=== PATIENT | male | born 1950 | race Caucasian/White ===

== ENCOUNTER 2018-11-05 15:33 | Inpatient (IN) | payer MEDICARE, OTHER ==
[~2018-11-05] VITALS: Ht 175.3 cm; Wt 87.5 kg
[2018-12-11] VITALS (11 sets, daily range): BP systolic 125–146; BP diastolic 77–90; PULSE 63–102; TEMP 97.3–97.6
[2018-12-11] MEDS ORDERED: COUMADIN4 MG PO (09:28)
[2018-12-11] MEDS ORDERED: PRAVACHOL10 MG PO (09:29)
[2018-12-11] MEDS ORDERED: PROTONIX 40MG T40 MG PO (09:29)
[2018-12-11] MEDS ORDERED: PLAVIX 75MG TAB75 MG PO (09:30)
[2018-12-11] MEDS ORDERED: AMBIEN 10MG10 MG PO (09:30)
[2018-12-11] MEDS ORDERED: COREG12.5 MG PO (09:31)
[2018-12-11] MEDS ORDERED: LASIX 20MG TABL20 MG PO (09:31)
[2018-12-11] MEDS ORDERED: K-DUR 10 MEQ T10 MEQ PO (09:32)
[2018-12-11] MEDS ORDERED: THE MEDICINE S200 M2 PO (09:33)
[2018-12-11] MEDS ORDERED: NITROSTAT0.4 MG/TAB SL (09:33)
[2018-12-11] MEDS ORDERED: MAGNESIUM250 M1 PO (09:33)
--- NOTE | 2018-12-11 10:04 | NUR ---
Patient arrives to pre-op area independently, accompanied by , at 0905. He is alert and oriented. Procedure confirmed, denies any questions, and verbalizes understanding. VSS and WNL on room air. Assessment completed and documented in admission B form. PIV started with x1 attempt and without complication. Pre-op labs drawn and collected by lab. Pre-op medications given per order. Call light usage taught and within reach. Patient to PACU for block with anesthesia associates at 1004. Patient's belongings x2 bags taken to PACU with patient label on them.
--- NOTE | 2018-12-11 16:30 | NUR ---
PATIENT ADMITED INTO ROOM 347 POST OP ROBOTIC LEFT PARTIAL NEPHRECTOMY AND LAP CARLOS. ABDOMINAL LAP SITES X5 CD&I WITH SWIFTSET. ABDOMINAL LAP SITES X3 FROM CARLOS CD&I WITH BANDAIDS. SHAMAR DRAIN TO COMPRESSION WITH SMALL AMOUNTS OF BLOODY DRAINAGE NOTED. IV FLUIDS INFUSING VIA PUMP INTO LEFT WRIST. NO C/O N/V. DAVIS TO DEPENDENT DRAINAGE WITH SMALL AMOUNTS OF CLEAR YELLOW URINE NOTED. HEAD TO TOE ASSESSMENT COMPLETE. FAMILY AT BEDSIDE. PATIENT DROWSY AND A LITTLE OUT OF IT. PATIENT RESTING. CALL LIGHT IN REACH.
--- NOTE | 2018-12-11 20:22 | NUR ---
Patient reporting pain 7/10 to abdomen. Medicated with IV Morphine 3mg now. Bandaids to abdomen dry and intact, glued lap sites without drainage. SHAMAR insertion site with gauze dressing. Found SHAMAR disconnected and drainage in bed, pad and gown changed. Placed tubing and bulb back together and compressed for bulb suction. Downey to BSD with yellow urine. Has SCD's on lower extremities. IVF LR infusing to left wrist at 125cc/hr without redness or swelling. Patient brought his own CPAP from home and will use [email or web address].
[2018-12-12 00:37] VITALS: BP 116/63; PULSE 80; TEMP 98.2
--- NOTE | 2018-12-12 01:55 | NUR ---
Patient calls, thinks his catheter is not working. Has yellow urine in tubing and in bag at bedside. Irrigated gently with 10cc of NS, no difficulty with irrigation. Patient reports he had turned on his side and possible kinked the tubing. Emptied 50cc of bloody drainage from SHAMAR and compressed back to bulb suction. Denies pain at this time.
--- NOTE | 2018-12-12 03:25 | NUR ---
Reports left flank pain, medicated with IV Morphine 3mg now as patient is not agreeable to taking Tramadol, denies allergic reaction just an intolerability.
[2018-12-12 03:39] VITALS: BP 102/57; PULSE 65; TEMP 98.3
--- NOTE | 2018-12-12 06:00 | NUR ---
Patient denies pain, wants to get up in chair this AM. Denies flatus.
[2018-12-12 07:05] LABS: BASO % 0.1 % (0.0-2.0); GRAN # 7.5 (1.4-6.5); GRAN % 85.5 % (42.2-75.2); HEMATOCRIT 39.1 % (42.0-52.0); HEMOGLOBIN 13.2 g/dl (13.5-18.0); LYMPH # 0.6 (1.2-3.4); LYMPH % 6.7 % (20.0-51.0); MEAN CELL VOLUME 94 fl (80.0-100.0); MEAN CORPUSCULAR HEMOGLOBIN 32 pg (27.0-31.0); MEAN CORPUSCULAR HGB CONC 34 g/dl (33.0-37.0); MEAN PLATELET VOLUME 9.3 fl (7.4-10.4); MONO # 0.6 (0.1-0.6); PLATELET COUNT 130 K/mm3 (130-400); RED BLOOD COUNT 4.16 M/mm3 (4.20-5.60); REDCELL DISTRIBUTION WIDTH-CV 12.8 % (11.5-14.5)
[2018-12-12 07:17] LABS: CALCIUM 8.9 mg/dL (8.4-10.2); CREATININE, serum 1.33 mg/dL (0.66-1.25); POTASSIUM 4.3 mmol/L (3.4-5.0)
[2018-12-12 08:19] VITALS: BP 115/72; PULSE 60; TEMP 97.6
--- NOTE | 2018-12-12 09:47 | NUR ---
SAFIA and SAFIA student met with the patient and his , Eleonora, to discuss discharge plan. The patient lives in [place] with his . The patient does not currently use any DME but has a cane and walker available if needed. The patient also has a CPAP that he got from [employer]. The patient reports independence with ADLs. The patient's PCP is Dr. Amber Garcia. The patient receives his medications from [facility] in [place] and he reports no difficulties obtaining his medications. The patient provided SW with a copy of his DPOA-HC and Living Will. SW placed in his chart. The patient plans to return home with his upon discharge. No additional needs at this time.
--- NOTE | 2018-12-12 10:26 | NUR ---
Patient alert and oriented, answers questions appropriately. See assessment. Abdomen soft, non tender, non distended. Bowel sounds hyperactive x4 quads. Lap sites with edges well approximated, no redness or drainage noted. SHAMAR sites with moderate amount of drainage, dressing changed. Small amount of bloody drainage noted in SHAMAR. No c/o at this time.
--- NOTE | 2018-12-12 10:28 | NUR ---
Initial visit; Patient thanked Horticultural Services Supervisor for looking in on him and offering God's blessings.
[2018-12-12 12:30] VITALS: BP 123/69; PULSE 61; TEMP 98.4
[2018-12-12 17:05] VITALS: BP 116/68; PULSE 73; TEMP 98.1
--- NOTE | 2018-12-12 21:30 | NUR ---
Patient in bed, ready for sleep. Medicated with scheduled Gabapentin and PRN dose of Ambien. Has CPAP from home that he is using. Has voided per urinal, emptied 300cc of yellow urine. Has SHAMAR drain with 30cc emptied at this time of bloody drainage. Denies pain. Lap sites to abdomen dry with either glue or bandaid. Drsg intact to SHAMAR insertion site. SL to left wrist without redness or swelling. Spouse at bedside.
[2018-12-13 03:31] VITALS: BP 101/62; PULSE 74; TEMP 98.9
--- NOTE | 2018-12-13 06:05 | NUR ---
Patient awake, complaining of soreness to abdomen, asking for Tylenol. Medicated with 650mg po now. Emptied SHAMAR for 20cc bloody drainage and sent to lab for CR. Up ad kyleigh in room.
--- NOTE | 2018-12-13 07:55 | NUR ---
Pt. is sitting up in the chair this morning. He is A&Ox4, denies pain at this time. Had tylenol earlier this morning prior to shift change. SHAMAR drain had been drained already, fluid was light red in color. Does have 8 lap. sites on abdomen from surgery on 12/11, does have some brusing slightly below belly button. pt. is still needing to have a BM prior to being discharged, will have Senna this morning and I encouraged him to walk and drink plenty of water. He said that he is passing gas and bowel sounds heard in all 4 quads. Normal heart sound S1 and S2, and all lung padilla are clear with auscultation. His breakfast has been ordered and he is currently drinking coffee.
[2018-12-13 08:30] VITALS: BP 119/69; PULSE 69; TEMP 98.1
--- NOTE | 2018-12-13 09:15 | NUR ---
Patient alert and oriented, answers questions appropriately. See assessment. Abdomen soft, non distended, bowel sounds active, +flatus. Lap sites with edges well approximated, no drainage noted. Post op exercises reviewed, ambulation encouraged. No c/o at this time.
--- NOTE | 2018-12-13 10:30 | NUR ---
SHAMAR removal, suture removed, drain pulled. 2x2 gauze and 4x4 tegaderm to cover. Patient tolerated well.
--- NOTE | 2018-12-13 11:52 | NUR ---
Discharge instructions reviewed with patient and spouse, verbalized understanding. Discharged via wheelchair to auto/home with spouse at 1152.
== END 2018-12-13 11:52 | disposition home or self-care (01) | DRG 657 ==
LOC: INPTSU 12-11 09:02 → SURG 12-11 11:00
PROVIDERS: Surgery; ADMIT Urology
PROC: 8E0W4CZ Robotic Assisted Procedure of Trunk Region, Percutaneous Endoscopic Approach (ICD-10-PCS; 2018-12-11)
PROC: 0TB14ZZ Excision of Left Kidney, Percutaneous Endoscopic Approach (ICD-10-PCS; principal; 2018-12-11 11:00)
PROC: 0FT44ZZ Resection of Gallbladder, Percutaneous Endoscopic Approach (ICD-10-PCS; 2018-12-11 11:00)
DX: C64.2 Malignant neoplasm of left kidney, except renal pelvis (principal); K80.10 Calculus of gallbladder with chronic cholecystitis without obstruction; D68.51 Activated protein C resistance; I50.22 Chronic systolic (congestive) heart failure; I13.0 Hypertensive heart and chronic kidney disease with heart failure and stage 1 through stage 4 chronic kidney disease, or unspecified chronic kidney disease; I25.10 Atherosclerotic heart disease of native coronary artery without angina pectoris; Z79.01 Long term (current) use of anticoagulants; Z86.711 Personal history of pulmonary embolism; Z95.1 Presence of aortocoronary bypass graft; Z95.0 Presence of cardiac pacemaker; I25.5 Ischemic cardiomyopathy; N18.2 Chronic kidney disease, stage 2 (mild)
CPT/HCPCS: A4314; A9284; J0690; J1100; J1885; J2250; J2270; J2704; J3010; J7120